=== PATIENT | male | born 1995 | race Caucasian/White ===

== ENCOUNTER 2020-11-25 02:31 | Emergency (ER) | payer OTHER, SELFPAY ==
[2020-11-25 02:44] VITALS: BP 128/91; PULSE 63; RESP 16; TEMP 36.6; O2SAT 99; BMI 19.8
--- NOTE | 2020-11-25 02:49 | ED_ITS ---
HPI - Dental/Oral General Chief complaint: Dental/Oral Stated complaint: Dental pain Time Seen by Provider: 11/25/20 02:49 Source: patient Mode of arrival: ambulatory Limitations: no limitations History of Present Illness HPI Narrative: Patient with deep dental cavity with roots involvement plan to have root canal treatment already on antibiotics comes here for pain which is getting worse when he takes cold water Related Data Previous Rx's Medication Instructions Recorded ibuprofen 600 mg tablet 600 mg PO Q6H PRN #20 tab 11/25/20 oxycodone 5 mg tablet 5 mg PO Q6H PRN #20 tab 11/25/20 Allergies Allergy/AdvReac Type Severity Reaction Status Date / Time sulfamethoxazole Allergy Unknown Verified 11/25/20 02:44 [From Bactrim] trimethoprim [From Bactrim] Allergy Unknown Verified 11/25/20 02:44 Review of Systems Review of Systems: Yes all other systems are reviewed and are negative [facility] Social History Social History Advance Directives: No Advance Directives Information Provided: No Physical Exam Vital Signs: Vital Signs: Last Vital Signs Temp 97.8 F 11/25/20 02:44 Pulse 63 11/25/20 02:44 Resp 16 11/25/20 02:44 BP 128/91 H 11/25/20 02:44 Pulse Ox 99 11/25/20 02:44 Body Mass Index 19.8 Const: General: no acute distress HENMT: General nose exam: Normal external nose present Face and sinus: Yes sinuses nontender Mouth: Normal oral and palatal mucosa present Throat image: 1. Tender to tab upper right 2nd molar no gum swelling Resp: Effort & Inspection: normal respiratory effort Auscultation: clear to auscultation bilaterally Cardio: Rate: regular rate Rhythm: regular rhythm Heart sounds: S1 normal heart sound present and S2 normal heart sound present MDM - Dental/Oral MDM Narrative Medical decision making narrative: Patient uncomplicated dental caries on antibiotic will discharge patient home on pain medication prior to her root canal done as outpatient Discharge Plan Discharge Clinical Impression: Toothache Patient Disposition: Home, Self-Care Instructions: Toothache (ED) Additional Instructions: Follow up with dentist as scheduled Continue to take your antibiotics and take pain medication for pain Prescriptions: New ibuprofen 600 mg tablet 600 mg PO Q6H PRN (Reason: pain) Qty: 20 RF: 0 oxycodone 5 mg tablet 5 mg PO Q6H PRN (Reason: Pain, Severe) Qty: 20 RF: 0 Interventions: ED Discharge Assessment Last Done: 11/25/20 03:52 Discharge Date/Time: 11/25/20 03:53
[2020-11-25] MEDS: Ibuprofen 600 MG TABLET PO (03:16)
== END 2020-11-25 03:53 | disposition home or self-care (01) ==
PROVIDERS: Emergency Provider Internal Medicine
DX: K08.89 Other specified disorders of teeth and supporting structures (principal); Z79.899 Other long term (current) drug therapy
CPT/HCPCS: 99283